=== PATIENT | male | born 1960 | race Caucasian/White ===

== ENCOUNTER 2016-12-23 20:26 | Emergency (ER) | payer OTHER ==
[~2016-12-23] VITALS: Ht 182.9 cm; Wt 68.0 kg
[2016-12-23 20:39] VITALS: BP 131/81; PULSE 82; RESP 16; O2SAT 94
--- NOTE | 2016-12-23 21:31 | PD ---
HPI Chief Complaint: Psychiatric Symptoms Time Seen by Provider: 21:26 Travel History International Travel<30 days: No Contact w/Intl Traveler<30days: No History of Present Illness HPI 56-year-old male with a history of bipolar disorder, anxiety is brought to the emergency department in transfer under Bobby act for psychiatric evaluation. The patient was initially seen and medically cleared at [facility]. Brought to our hospital for psychiatric evaluation. Per the Bobby act report and the medical record sent from [facility] the patient has had bizarre behavior and has not been taking his Depakote appropriately. Denies any suicidal or homicidal ideations. Denies any attempts to harm himself. Denies alcohol or drug use. Denies any medical complaints. Denies chest pain, shortness breath, abdominal pain, nausea, vomiting, diarrhea, lightheadedness, dizziness. PFSH Past Medical History Narrative Medical Anxiety Bipolar disorder Social History Tobacco Use: Yes Review of Systems Except as stated in HPI: all other systems reviewed are Neg Physical Exam Narrative GENERAL: Well-nourished and well-developed pleasant male patient in no acute distress who is nontoxic appearing. SKIN: Warm and dry. HEAD: Normocephalic and atraumatic. EYES: No injection, drainage, or hyphema noted. PERRLA. EOMI. ENT: No nasal drainage noted. Oropharynx is clear. NECK: Supple and the trachea is midline. CARDIOVASCULAR: Regular rate and rhythm. RESPIRATORY: Breath sounds are equal bilaterally with no accessory muscle use, wheezing, rhonchi, or crackles. GASTROINTESTINAL: Abdomen is soft, non-tender, and nondistended. MUSCULOSKELETAL: No obvious deformities, swelling, cyanosis, or ecchymosis is present throughout the upper and lower extremities. Patient has full range of motion without any signs of neurovascular compromise. NEUROLOGICAL: Awake, alert, and oriented. Normal speech and gait. Cranial nerves are grossly intact. Data Data Last Documented VS Vital Signs Date Time Temp Pulse Resp B/P Pulse Ox O2 Delivery O2 Flow Rate FiO2 12/23/16 20:39 82 16 131/81 94 Room Air MDM Medical Decision Making Medical Screen Exam Complete: Yes Emergency Medical Condition: Yes Differential Diagnosis Differential: Depression versus adjustment reaction versus anxiety versus PTSD versus psychosis NOS versus mood disorder NOS versus substance induced mood disorder versus ODD versus adjustment reaction versus schizophrenia versus bipolar disorder versus schizoaffective versus electrolyte abnormality Narrative Course Patient presents under a Bobby act. Physical examination and vital signs are essentially unremarkable. Patient has no medical complaints to report. Patient was seen at [facility] and where he had labs performed and was medically cleared. I reviewed these labs and they are unremarkable. Psych screen has been ordered. The patient will be medically cleared for psychiatric evaluation and disposition. Diagnosis Primary Impression: Mood disorder Neli Cuellar Dec 23, 2016 21:31
[2016-12-23 22:18] VITALS: BP 119/67; PULSE 70; RESP 19; O2SAT 98
[2016-12-23] MEDS ORDERED: DIVA500T3 PO (22:42)
[2016-12-23] MEDS ORDERED: ASPI81CH CHEW (22:42)
[2016-12-24 02:00] VITALS: BP 113/78; PULSE 60; RESP 19; O2SAT 96
[2016-12-24 06:21] VITALS: BP 127/70; PULSE 59; RESP 17; O2SAT 95
[2016-12-24 10:43] VITALS: BP 112/67; PULSE 63; RESP 18; O2SAT 98
--- NOTE | 2016-12-24 13:39 | PD ---
History of Present Illness Chief Complaint: Psychiatric Symptoms Time Seen by Provider: 13:00 Travel History International Travel<30 Days: No Contact w/Intl Traveler<30days: No Known affected area: No Legal Status Legal Status: Bobby Act Bobby Act Signed By: CHAITANYA FONTENOT MD Bobby Act Comment: 12/23/16 0473 History of Present Illness: 56-year-old male who was Bobby acted at an outside hospital ([facility]) for bizarre behavior. According to the patient's friend and sister, the patient had been acting in a peculiar and bizarre fashion for the last several days. He had been yelling and screaming, and she was concerned for his safety. He has also reportedly been acting in a childlike manner and speaking and loose associations. She felt he was engaging in delusional thoughts but patient denies this and there is no evidence at this time. He reportedly could not sit still. When [place] he spoke responded that he was in a hotel getting lockdown with much gravity. He denied being suicidal or homicidal. Upon evaluation today, the patient is calm, pleasant and cooperative. He is not restless or agitated. He does acknowledge that he has bipolar disorder and that he has not been taking his Depakote. He does not like that medication and would like to see his psychiatrist and try a different mood stabilizer. He is not apparently psychotic, delusional, loose or inappropriate at this time. He does chuckle at his behavior yesterday. He is once again denying any suicidal or homicidal ideation, plan or intent. He is willing to accept outpatient treatment. His cognition is intact and he is verbally ronn for safety. PFSH Past Medical History Atrial Fibrillation: Yes Bipolar Disorder: Yes Anxiety: Yes Cardiac Catheterization: Yes Cardiovascular Problems: Yes (Atherosclerosis of the artery) High Cholesterol: Yes Coronary Artery Disease: Yes Diminished Hearing: No Past Surgical History Other Surgery: Yes (Knee arthroplasty) Psychiatric History Psychiatric History Hx Psychiatric Treatment: Patient with hx of Bipolar I disorer and anxiety. Depakote prescibed by Dr. Odell , neurologist. History of Inpatient Treatment: No Guns or firearms in home: No Social History Hx Alcohol Use: Yes (occassionally) Hx Tobacco Use: Yes Hx Substance Use: No Substance Use Type: Alcohol, Nicotine/Cigarettes Hx of Substance Use Treatment: No Allergies-Medications (Allergen,Severity, Reaction): Coded Allergies: Penicillin (Verified Allergy, Severe, 12/23/16) Amoxicillin (Verified Allergy, Unknown, 12/24/16) Reported Meds & Prescriptions Reported Meds & Active Scripts Active Reported Divalproex ER (Divalproex Sodium) 500 Mg Tab 500 Mg PO TID Aspirin 81 Mg Chew 81 Mg CHEW DAILY Review of Systems Except as stated in HPI: all other systems reviewed are Neg Exam Alert: Yes [place]: Person, Place, Date, Situation Mood: Calm Affect: Appropriate Speech: Clear, Logical Eye Contact: Normal Memory Intact: Immediate, Recent, Remote Insight/Judgement Impaired but adequate. Impaired but adequate. MDM Medical Decision Making Medical Record Reviewed: Yes Assessment/Plan This physician spent considerable time reviewing the patient's record and speaking with him. This physician agrees with the diagnosis of bipolar disorder , most likely mixed type. The patient is also at risk for decompensation because he has not been taking his mood stabilizer, Depakote. He is willing to take a different mood stabilizer and he is willing to see a psychiatrist to do this. He states there is a [facility] office in his community and that he has been there before. He is willing to go there again. As he denies suicidal and homicidal ideation, plan and intention as well as felt the same way last night, this physician feels obliged to lift his Bobby act. Additionally, the patient can be treated on an outpatient basis. He was asked to return to the hospital voluntarily at the [facility] once again. Orders Diet Regular Basic (12/24/16 Breakfast) Psych Screen (12/24/16 00:28) Diet Regular Basic (12/24/16 Lunch) Results Vital Signs Date Time Temp Pulse Resp B/P Pulse Ox O2 Delivery O2 Flow Rate FiO2 12/24/16 10:43 63 18 112/67 98 Room Air 12/24/16 06:21 59 17 127/70 95 Room Air 12/24/16 02:00 60 19 113/78 96 Room Air 12/23/16 22:18 70 19 119/67 98 Room Air 12/23/16 20:39 82 16 131/81 94 Room Air Diagnosis Primary Impression: History of depressed bipolar disorder Departure Forms: Tests/Procedures Patient Instructions: General Instructions, Bipolar Disorder (ED) Additional Instructions: [facility] Appointment 12/25/2016 7:[address] [place] [address] Disposition: 01 DISCHARGE HOME Ricardo Pineda MD Dec 24, 2016 13:39
== END 2016-12-24 13:38 | disposition home or self-care (01) ==
LOC: NEDAMB 20:26 → NEPJ 12-24 13:38
DX: F31.30 Bipolar disorder, current episode depressed, mild or moderate severity, unspecified (principal); I48.91 Unspecified atrial fibrillation; E78.00 Pure hypercholesterolemia, unspecified; Z87.891 Personal history of nicotine dependence
CPT/HCPCS: 99284